=== PATIENT | female | born 1990 | race Caucasian/White ===

== ENCOUNTER 2017-05-21 23:09 | Emergency (ER) | payer SELFPAY ==
[~2017-05-21] VITALS: Ht 180.3 cm; Wt 105.1 kg
[2017-05-21 23:11] VITALS: BP 129/84
[2017-05-21] MEDS ORDERED: SULF1TAB24 PO (23:54)
[2017-05-21 23:57] LABS: HCG UR SG 1.026 (1.003-1.030)
[2017-05-21 23:59] LABS: CULTURE INDICATED? YES; MICROSCOPIC INDICATED
[2017-05-22] MEDS ORDERED: NITROFURANTOIN (MACROBID) 100 MG CAPSULE PO ONE (01:00)
== END 2017-05-22 01:03 | disposition home or self-care (01) ==
LOC: ED 23:42 → MERGE 23:42 → ED 05-22 01:03
DX: N30.90 Cystitis, unspecified without hematuria (principal); M54.5 Low back pain
CPT/HCPCS: 81001; 81025; 87086; 99284

== ENCOUNTER 2017-09-08 08:31 | Emergency (ER) | payer OTHER ==
[~2017-09-08] VITALS: Ht 180.3 cm; Wt 97.0 kg
[~2017-09-08 08:31] MED LIST: SULF1TAB24 PO
[2017-09-08] MEDS ORDERED: PREN1TAB28 PO (08:50)
[2017-09-08 09:25] LABS: BASOPHILS # (AUTO) 0.02 x10^3/uL (0-0.1); BASOPHILS % (AUTO) 1 % (0-1); EOSINOPHILS # (AUTO) 0.03 x10^3/uL (0-0.4); EOSINOPHILS % (AUTO) 1 % (1-7); LYMPHOCYTES # (AUTO) 0.43 x10^3/uL (1-3.4); LYMPHOCYTES % (AUTO) 11 % (22-44); MD NO; MEAN CORPUSCULAR HEMOGLOBIN 28.7 pg (27.0-34.8); MEAN CORPUSCULAR HGB CONC 33.8 g/dL (32.4-35.8); MEAN CORPUSCULAR VOLUME 84.8 fL (80-100); MEAN PLATELET VOLUME 9.2 fL (7.4-10.4); MONOCYTES # (AUTO) 0.36 x10^3/uL (0.2-0.8); MONOCYTES % (AUTO) 9 % (2-9); NEUTROPHILS # (AUTO) 3.21 x10^3/uL (1.8-6.8); NEUTROPHILS % (AUTO) 79 % (42-75); PLATELET COUNT 194 x10^3/uL (130-400); RED BLOOD COUNT 4.11 x10^6/uL (3.82-5.3); RED CELL DISTRIBUTION WIDTH 13.7 % (9.6-15.2)
[2017-09-08] MEDS ORDERED: ONDANSETRON ODT 4 MG ONE (09:27)
[2017-09-08] MEDS ORDERED: FAMOTIDINE 20 MG/2 ML ONE (09:28)
[2017-09-08] MEDS ORDERED: ONDANSETRON 2MG/ML, 2ML IVPush ONE (09:30)
[2017-09-08] MEDS ORDERED: SODIUM CHLORIDE FLUSH 10ML SYR IVF ONE (09:30)
[2017-09-08] MEDS ORDERED: SODIUM CHLORIDE 0.9% 1,000ML IVBOLUS ONE ×2 (09:30→11:00)
[2017-09-08] MEDS ORDERED: FAMOTIDINE 20 MG/2 ML IVP ONE (09:30)
[2017-09-08 09:34] LABS: ALANINE AMINOTRANSFERASE 21 U/L (12-78); ANION GAP 8 mmol/L (5-15); CALCIUM 8.4 mg/dL (8.5-10.1); CHLORIDE 109 mmol/L (98-107); CREATININE 0.64 mg/dL (0.55-1.02)
[2017-09-08 09:37] LABS: ALKALINE PHOSPHATASE 63 U/L (45-117); TOTAL PROTEIN 7.1 g/dL (6.4-8.2)
[2017-09-08 11:31] LABS: CULTURE INDICATED? YES; MICROSCOPIC INDICATED
[2017-09-08 12:02] VITALS: BP 115/75
== END 2017-09-08 12:41 | disposition home or self-care (01) ==
LOC: ED 10:12
DX: O21.1 Hyperemesis gravidarum with metabolic disturbance (principal); E86.0 Dehydration; O23.12 Infections of bladder in pregnancy, second trimester; Z3A.13 13 weeks gestation of pregnancy; O99.282 Endocrine, nutritional and metabolic diseases complicating pregnancy, second trimester
CPT/HCPCS: 36415; 80053; 81001; 85025; 87086; 96361; 96374; 96375; 99285; J2405; J7030; S0028

== ENCOUNTER 2017-10-13 11:56 | Emergency (ER) | payer OTHER ==
[~2017-10-13] VITALS: Ht 180.3 cm; Wt 100.3 kg
[~2017-10-13 11:56] MED LIST changes: +PREN1TAB28 PO
[2017-10-13 12:59] LABS: MICROSCOPIC AUTO
[2017-10-13 13:02] LABS: CULTURE INDICATED? YES
[2017-10-13 13:08] LABS: BASOPHILS % (AUTO) 1 % (0-1); EOSINOPHILS # (AUTO) 0.06 x10^3/uL (0-0.4); EOSINOPHILS % (AUTO) 1 % (1-7); LYMPHOCYTES # (AUTO) 0.95 x10^3/uL (1-3.4); LYMPHOCYTES % (AUTO) 14 % (22-44); MD NO; MEAN CORPUSCULAR HEMOGLOBIN 29.9 pg (27.0-34.8); MEAN CORPUSCULAR HGB CONC 34.5 g/dL (32.4-35.8); MEAN CORPUSCULAR VOLUME 86.6 fL (80-100); MEAN PLATELET VOLUME 9.4 fL (7.4-10.4); MONOCYTES # (AUTO) 0.46 x10^3/uL (0.2-0.8); MONOCYTES % (AUTO) 7 % (2-9); NEUTROPHILS # (AUTO) 5.39 x10^3/uL (1.8-6.8); NEUTROPHILS % (AUTO) 78 % (42-75); PLATELET COUNT 281 x10^3/uL (130-400); RED BLOOD COUNT 3.99 x10^6/uL (3.82-5.3); RED CELL DISTRIBUTION WIDTH 14.2 % (9.6-15.2)
[2017-10-13 13:47] VITALS: BP 106/64
== END 2017-10-13 13:54 | disposition home or self-care (01) ==
LOC: ED 13:43
DX: O23.12 Infections of bladder in pregnancy, second trimester (principal); Z3A.18 18 weeks gestation of pregnancy
CPT/HCPCS: 36415; 76815; 81001; 84702; 85025; 86901; 87086; 99285

== ENCOUNTER 2017-11-21 12:01 | Emergency (ER) | payer OTHER ==
[~2017-11-21] VITALS: Ht 180.3 cm; Wt 102.7 kg
[2017-11-21 12:06] VITALS: BP 128/68
== END 2017-11-21 14:22 | disposition home or self-care (01) ==
LOC: ED 14:00
DX: Z20.1 Contact with and (suspected) exposure to tuberculosis (principal); Z04.8 Encounter for examination and observation for other specified reasons
CPT/HCPCS: 71046; 99284

== ENCOUNTER 2017-12-09 22:48 | Observation (INO) | payer OTHER ==
[~2017-12-09] VITALS: Ht 177.8 cm; Wt 104.5 kg
== END 2017-12-10 12:35 | disposition home or self-care (01) ==
LOC: LDOP 22:48 → LDIP 12-10 00:40 → UNDODISOB 12-10 02:10 → LDIP 12-10 10:59
PROVIDERS: ADMIT Obstetrics & Gynecology Gynecology; ATTEND Obstetrics & Gynecology Gynecology
DX: O46.92 Antepartum hemorrhage, unspecified, second trimester (principal); Z3A.26 26 weeks gestation of pregnancy
CPT/HCPCS: 76815; G0378

== ENCOUNTER → 2017-12-10 | Outpatient (CLI) | payer OTHER ==
[~2017-12-10] VITALS: Ht 177.8 cm; Wt 104.5 kg
[2017-12-10 10:23] VITALS: BP 109/60
== END | disposition home or self-care (01) ==
LOC: LDOP 10:03
PROVIDERS: ATTEND Obstetrics & Gynecology Gynecology
DX: O26.892 Other specified pregnancy related conditions, second trimester (principal); R10.9 Unspecified abdominal pain; Z3A.26 26 weeks gestation of pregnancy
CPT/HCPCS: 59025

== ENCOUNTER 2018-01-06 13:04 | Outpatient (CLI) | payer OTHER ==
[~2018-01-06] VITALS: Ht 180.3 cm; Wt 106.8 kg
[2018-01-06 13:14] VITALS: BP 109/58
== END 2018-01-06 13:55 | disposition home or self-care (01) ==
LOC: LDOP 13:04
PROVIDERS: ATTEND Obstetrics & Gynecology Gynecology
DX: O36.8130 Decreased fetal movements, third trimester, not applicable or unspecified (principal); Z3A.30 30 weeks gestation of pregnancy
CPT/HCPCS: 59025; 99211; G0463

== ENCOUNTER 2018-02-13 20:30 | Outpatient (CLI) | payer OTHER ==
[~2018-02-13] VITALS: Ht 180.3 cm; Wt 108.0 kg
[2018-02-13 21:07] LABS: MICROSCOPIC INDICATED
== END 2018-02-13 21:37 | disposition home or self-care (01) ==
LOC: LDOP 20:30
PROVIDERS: ATTEND Obstetrics & Gynecology Gynecology
DX: O26.893 Other specified pregnancy related conditions, third trimester (principal); R10.9 Unspecified abdominal pain; Z3A.36 36 weeks gestation of pregnancy
CPT/HCPCS: 59025; 81001; 87086; 89060; 99211; G0463; Q0114

== ENCOUNTER 2018-02-16 17:00 | Outpatient (CLI) | payer OTHER ==
[2018-02-16 18:21] LABS: MICROSCOPIC INDICATED
[2018-02-16 18:29] LABS: CHLORIDE 108 mmol/L (98-107)
[2018-02-16 18:38] LABS: BASOPHILS # (AUTO) 0.02 x10^3/uL (0-0.1); BASOPHILS % (AUTO) 0 % (0-1); EOSINOPHILS # (AUTO) 0.03 x10^3/uL (0-0.4); EOSINOPHILS % (AUTO) 0 % (1-7); LYMPHOCYTES # (AUTO) 1.09 x10^3/uL (1-3.4); LYMPHOCYTES % (AUTO) 12 % (22-44); MD NO; MEAN CORPUSCULAR HEMOGLOBIN 29.2 pg (27.0-34.8); MEAN CORPUSCULAR HGB CONC 33.9 g/dL (32.4-35.8); MEAN PLATELET VOLUME 9.9 fL (7.4-10.4); MONOCYTES # (AUTO) 0.84 x10^3/uL (0.2-0.8); MONOCYTES % (AUTO) 9 % (2-9); NEUTROPHILS # (AUTO) 7.51 x10^3/uL (1.8-6.8); NEUTROPHILS % (AUTO) 79 % (42-75); PLATELET COUNT 251 x10^3/uL (130-400); RED BLOOD COUNT 3.71 x10^6/uL (3.82-5.3); RED CELL DISTRIBUTION WIDTH 14.1 % (9.6-15.2)
[2018-02-16 18:47] LABS: ALANINE AMINOTRANSFERASE 37 U/L (12-78); ALBUMIN 2.4 g/dL (3.4-5.0); ANION GAP 9 mmol/L (5-15); CALCIUM 8.8 mg/dL (8.5-10.1); CREATININE 0.78 mg/dL (0.55-1.02)
[2018-02-16 18:49] LABS: ALKALINE PHOSPHATASE 131 U/L (45-117); BILIRUBIN,TOTAL 0.7 mg/dL (0.2-1.0); TOTAL PROTEIN 6.9 g/dL (6.4-8.2)
[2018-02-23] MEDS ORDERED: IBUP-1222 PO (07:57)
== END 2018-02-16 20:15 | disposition home or self-care (01) ==
LOC: LDOP 17:00
PROVIDERS: ATTEND Obstetrics & Gynecology Gynecology
DX: O99.613 Diseases of the digestive system complicating pregnancy, third trimester (principal); K80.20 Calculus of gallbladder without cholecystitis without obstruction; Z3A.36 36 weeks gestation of pregnancy
CPT/HCPCS: 36415; 59025; 76705; 80053; 81001; 82150; 83690; 85025; 99211; G0463

== ENCOUNTER 2018-02-19 12:32 | Outpatient (CLI) | payer OTHER ==
[~2018-02-19] VITALS: Ht 180.3 cm; Wt 108.3 kg
[2018-02-19] MEDS ORDERED: NITR100C56 PO (13:14)
[2018-02-23] MEDS ORDERED: IBUP-1222 PO (07:57)
== END 2018-02-19 13:40 | disposition home or self-care (01) ==
LOC: LDOP 12:32
PROVIDERS: ATTEND Obstetrics & Gynecology Gynecology
DX: O46.93 Antepartum hemorrhage, unspecified, third trimester (principal); Z3A.37 37 weeks gestation of pregnancy
CPT/HCPCS: 59025; 99211; G0463

== ENCOUNTER 2019-06-02 10:34 | Emergency (ER) | payer OTHER ==
[~2019-06-02] VITALS: Ht 180.3 cm; Wt 114.2 kg
[~2019-06-02 10:34] MED LIST changes: +ACET325C6 PO; +ACET325T14 PO; +IBUP-1222 PO; +NITR100C56 PO
--- NOTE | 2019-06-02 11:03 | NUR ---
PT UPRIGHT ON GURNEY AWAKE & COMFORTABLE, RESPONDS APPROP TO STAFF, NAD, COMFORT MEASURES PROVIDED, CALL LIGHT WITHIN REACH.
--- NOTE | 2019-06-02 11:10 | NUR ---
PT TO US
[2019-06-02 11:31] LABS: MICROSCOPIC AUTO
[2019-06-02 11:34] LABS: CULTURE INDICATED? YES
--- NOTE | 2019-06-02 11:40 | NUR ---
PT RETURNED FROM US
[2019-06-02 11:55] LABS: BASOPHILS # (AUTO) 0.05 x10^3/uL (0-0.1); BASOPHILS % (AUTO) 1 % (0-1); EOSINOPHILS # (AUTO) 0.12 x10^3/uL (0-0.4); EOSINOPHILS % (AUTO) 2 % (1-7); LYMPHOCYTES # (AUTO) 1.36 x10^3/uL (1-3.4); LYMPHOCYTES % (AUTO) 25 % (22-44); MD NO; MEAN CORPUSCULAR HEMOGLOBIN 25.8 pg (27.0-34.8); MEAN CORPUSCULAR HGB CONC 32.2 g/dL (32.4-35.8); MEAN CORPUSCULAR VOLUME 80.1 fL (80-100); MEAN PLATELET VOLUME 9.7 fL (7.4-10.4); MONOCYTES # (AUTO) 0.54 x10^3/uL (0.2-0.8); MONOCYTES % (AUTO) 10 % (2-9); NEUTROPHILS # (AUTO) 3.43 x10^3/uL (1.8-6.8); NEUTROPHILS % (AUTO) 63 % (42-75); PLATELET COUNT 263 x10^3/uL (130-400); RED BLOOD COUNT 4.42 x10^6/uL (3.82-5.3); RED CELL DISTRIBUTION WIDTH 16.1 % (9.6-15.2)
[2019-06-02 12:07] LABS: ALBUMIN 3.2 g/dL (3.4-5.0); ANION GAP 4 mmol/L (5-15); CHLORIDE 111 mmol/L (98-107); CREATININE 0.82 mg/dL (0.55-1.02)
[2019-06-02 12:19] VITALS: BP 114/73
--- NOTE | 2019-06-02 12:21 | NUR ---
BREAK NOTE: PT. IS RESTING WITHOUT CONCERNS. VSS. SIDERAILS REMAIN UP X 2 WITH THE CALL LIGHT IN PLACE. PT. STATES MINIMAL VAGINAL BLEEDING AT THIS TIME.
--- NOTE | 2019-06-02 12:34 | NUR ---
Patient given discharge instructions and they have confirmed that they understand the instructions. Patient ambulatory with steady gait.
== END 2019-06-02 12:42 | disposition home or self-care (01) ==
LOC: ED 12:36
DX: O26.891 Other specified pregnancy related conditions, first trimester (principal); Z3A.01 Less than 8 weeks gestation of pregnancy
CPT/HCPCS: 36415; 76830; 80048; 81001; 82040; 84702; 85025; 86901; 87086; 99284

== ENCOUNTER 2019-06-05 10:38 | Emergency (ER) | payer OTHER ==
[~2019-06-05] VITALS: Ht 180.3 cm; Wt 112.6 kg
[2019-06-05 10:41] VITALS: BP 126/69
== END 2019-06-05 11:51 | disposition home or self-care (01) ==
LOC: ED 11:25
DX: O20.0 Threatened abortion (principal); Z3A.01 Less than 8 weeks gestation of pregnancy
CPT/HCPCS: 36415; 84702; 99283

== ENCOUNTER 2019-06-11 09:20 | Emergency (ER) | payer OTHER ==
--- NOTE | 2019-06-11 10:12 | NUR ---
PT STATES HAVING COUGH X1 WEEK, NOW WITH SPOTTING AND CRAMPING PT IS 5 WEEKS , SPOTTING BEGAN LAST NIGHT. PT HAD MISCARRAIGE LAST 2018. PT WANTS TO MAKE SURE EVERYTHING IS OK WITH BABY
[2019-06-11 11:32] LABS: RAPID INFLUENZA A Negative (Negative); RAPID INFLUENZA B Negative (Negative)
--- NOTE | 2019-06-11 11:56 | NUR ---
PT BACK FROM US, VSS, DENIES NEEDS AT THIS TIME
[2019-06-11 12:01] LABS: BASOPHILS # (AUTO) 0.06 x10^3/uL (0-0.1); BASOPHILS % (AUTO) 1 % (0-1); EOSINOPHILS # (AUTO) 0.06 x10^3/uL (0-0.4); EOSINOPHILS % (AUTO) 1 % (1-7); LYMPHOCYTES # (AUTO) 1.24 x10^3/uL (1-3.4); LYMPHOCYTES % (AUTO) 18 % (22-44); MD NO; MEAN CORPUSCULAR HEMOGLOBIN 26.1 pg (27.0-34.8); MEAN CORPUSCULAR VOLUME 79.1 fL (80-100); MEAN PLATELET VOLUME 9.5 fL (7.4-10.4); MONOCYTES # (AUTO) 0.53 x10^3/uL (0.2-0.8); MONOCYTES % (AUTO) 8 % (2-9); NEUTROPHILS # (AUTO) 5.17 x10^3/uL (1.8-6.8); NEUTROPHILS % (AUTO) 73 % (42-75); PLATELET COUNT 322 x10^3/uL (130-400); RED BLOOD COUNT 4.44 x10^6/uL (3.82-5.3); RED CELL DISTRIBUTION WIDTH 16.1 % (9.6-15.2)
[2019-06-11 12:09] LABS: ANION GAP 9 mmol/L (5-15); CALCIUM 9.1 mg/dL (8.5-10.1); CHLORIDE 110 mmol/L (98-107)
[2019-06-11 12:13] LABS: CREATININE 0.85 mg/dL (0.55-1.02)
--- NOTE | 2019-06-11 13:54 | NUR ---
FIRST CONTACT. OPAL EWING IS DISCHARGING THE PT. FOR THE PRIMARY CARE RN. PT. WAS GIVEN INSTRUCTIONS WITH UNDERSTANDING VERBALIZED ALONG WITH WILLINGNESS TO COMPLY. PT.'S VITALS ARE STABLE. PT. WAS AMBULATORY TO THE DISCHARGE DESK.
[2019-06-11 14:00] VITALS: BP 116/75
== END 2019-06-11 14:02 | disposition home or self-care (01) ==
LOC: ED 11:59
DX: O03.4 Incomplete spontaneous abortion without complication (principal); J02.9 Acute pharyngitis, unspecified; R51 Headache
CPT/HCPCS: 36415; 76801; 80048; 84702; 85025; 87400; 99284

== ENCOUNTER 2019-06-18 10:38 | Emergency (ER) | payer OTHER ==
[~2019-06-18] VITALS: Ht 180.3 cm; Wt 113.0 kg
--- NOTE | 2019-06-18 11:17 | NUR ---
VISION CARE ASSOCIATE: PT TO [facility] FROM [facility]
[2019-06-18 12:11] LABS: BASOPHILS # (AUTO) 0.08 x10^3/uL (0-0.1); BASOPHILS % (AUTO) 1 % (0-1); EOSINOPHILS # (AUTO) 0.11 x10^3/uL (0-0.4); EOSINOPHILS % (AUTO) 2 % (1-7); LYMPHOCYTES # (AUTO) 1.06 x10^3/uL (1-3.4); LYMPHOCYTES % (AUTO) 18 % (22-44); MD NO; MEAN CORPUSCULAR HEMOGLOBIN 26.2 pg (27.0-34.8); MEAN CORPUSCULAR HGB CONC 33.1 g/dL (32.4-35.8); MEAN CORPUSCULAR VOLUME 79.2 fL (80-100); MEAN PLATELET VOLUME 9.1 fL (7.4-10.4); MONOCYTES # (AUTO) 0.39 x10^3/uL (0.2-0.8); MONOCYTES % (AUTO) 7 % (2-9); NEUTROPHILS # (AUTO) 4.18 x10^3/uL (1.8-6.8); NEUTROPHILS % (AUTO) 72 % (42-75); PLATELET COUNT 313 x10^3/uL (130-400); RED BLOOD COUNT 4.52 x10^6/uL (3.82-5.3)
[2019-06-18 12:21] VITALS: BP 112/67
== END 2019-06-18 14:38 | disposition home or self-care (01) ==
LOC: ED 12:08
DX: O20.0 Threatened abortion (principal)
CPT/HCPCS: 36415; 76801; 84702; 85025; 99284

== ENCOUNTER 2020-07-24 22:31 | Emergency (ER) | payer OTHER ==
[~2020-07-24] VITALS: Ht 180.3 cm; Wt 121.6 kg
--- NOTE | 2020-07-24 23:05 | NUR ---
PATIENT TO ER FOR LLE NUMBNESS/TINGLING AND PAIN IN HER CALF WHILE AT REST "LIKE IM GOING TO GET A ANNE-MARIE HORSE". + PALPABLE PEDAL PULSE. TRACE NOTEABLE SWELLING TO LLE BUT NON-PITTING AT THIS TIME. ALSO, REPORTS CHEST PAIN AND SOME SOB WHEN AMBULATING DUE TO HER PAIN IN HER CHEST "BUT I THINK THATS JUST A SYMPTOM FROM THE VACCINE". PATIENT MONITORED ON RAW [employer] WELL O2 PROBE AND BP. WILL CONTINUE TO MONITOR. + CSM IN LLE AND STRENGTH EQUAL ON BLE. NO DISCOLORATION NOTED TO LLE.
[2020-07-24 23:09] VITALS: BP 122/81
--- NOTE | 2020-07-24 23:22 | NUR ---
US AT BEDSIDE
--- NOTE | 2020-07-24 23:59 | NUR ---
DISCHARGE INSTRUCTIONS REVIEWED WITH PATIENT. NO FURTHER QUESTIONS. NO IV PLACED DURING ER VISIT. STEADY GAIT TO LOBBY. ALL PERSONAL BELONGINGS WITH PATIENT ON DEPARTURE
== END 2020-07-25 00:02 | disposition home or self-care (01) ==
LOC: ED 07-25 00:01
DX: S86.112A Strain of other muscle(s) and tendon(s) of posterior muscle group at lower leg level, left leg, initial encounter (principal); X58.XXXA Exposure to other specified factors, initial encounter; Y93.89 Activity, other specified; Y92.89 Other specified places as the place of occurrence of the external cause; Y99.8 Other external cause status
CPT/HCPCS: 99284